=== PATIENT | male | born 1975 | race Caucasian/White ===

== ENCOUNTER 2017-01-17 19:03 | Emergency (ER) | payer OTHER ==
[2017-01-17 19:35] VITALS: RESP 16; TEMP 98.6; O2SAT 97
[2017-01-17] MEDS ORDERED: SKIN ADHESIVE (DERMABOND) 1 EACH TP ONE ×2 (21:37→21:39)
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
[2017-01-17 22:11] VITALS: BP 142/89; PULSE 58
== END 2017-01-17 21:55 | disposition home or self-care (01) ==
LOC: CED 19:03
DX: S06.0X1A Concussion with loss of consciousness of 30 minutes or less, initial encounter (principal); S43.101A Unspecified dislocation of right acromioclavicular joint, initial encounter; S61.219A Laceration without foreign body of unspecified finger without damage to nail, initial encounter; S16.1XXA Strain of muscle, fascia and tendon at neck level, initial encounter; S50.01XA Contusion of right elbow, initial encounter; V18.2XXA Unspecified pedal cyclist injured in noncollision transport accident in nontraffic accident, initial encounter; Y93.55 Activity, bike riding
CPT/HCPCS: 12001-PO; 73030-PO; 73080-PO; 99203-PO; G0463-PO